=== PATIENT | female | born 1940 ===

== ENCOUNTER 2019-01-10 08:05 | Day surgery (SDC) | payer MEDICARE ==
[~2019-01-10 08:05] MED LIST: Buffered Lidocaine 1% SYRIN* 1 ML/SYRINGE INTRADERM ONE; Lactated Ringers 1000 ML Bag* 1,000 ML IV SCH
[2019-01-10] MEDS ORDERED: fentaNYL* 50 MCG/ML 2 ML VIAL (100 MCG VIAL) ONE (10:34)
[2019-01-10] MEDS ORDERED: Midazolam* 1 MG/ML 2 ML VIAL (2 MG) ONE (10:34)
[2019-01-10] MEDS ORDERED: Propofol* 10 MG/ML 20 ML BTL ONE (10:34)
[2019-01-10] MEDS ORDERED: Atropine 1MG/ML INJ* 1 ML VIAL ONE (11:14)
[2019-01-10] MEDS ORDERED: Ondansetron INJ* 2 MG/ML VIAL IV PRN (11:16)
[2019-01-10] MEDS ORDERED: DiMENhydriNATE IV* 50 MG/ML VIAL IV PUSH PRN (11:16)
[2019-01-10] MEDS ORDERED: oxyCODONE/Acetamin 5/325 MG* TAB PO PRN (11:16)
[2019-01-10] MEDS ORDERED: fentaNYL* 50 MCG/ML 2 ML VIAL (100 MCG VIAL) IV PRN (11:16)
[2019-01-10] MEDS ORDERED: Naloxone* 0.4 MG/ML 1 ML VIAL IV PRN (11:16)
[2019-01-10] MEDS ORDERED: Ondansetron INJ* 2 MG/ML VIAL ONE (11:25)
[2019-01-10 12:33] VITALS: BP 149/76
--- NOTE | 2019-01-10 13:12 | OP ---
CC: [facility] OPERATIVE REPORT: DATE OF OPERATION: 01/10/19 DATE OF : 38 SURGEON: Enrrique Sanchez MD ANESTHESIOLOGIST: Dr. Fuentes ANESTHESIA: General endotracheal anesthesia. PRE-OP DIAGNOSES: 1. Postmenopausal bleeding. 2. Thickened endometrium on ultrasound. POST-OP DIAGNOSIS: 1. Postmenopausal bleeding. 2. Thickened endometrium on ultrasound. OPERATIVE PROCEDURE: Dilation, hysteroscopy, curettage, MyoSure, and polypectomy. ESTIMATED BLOOD LOSS: Minimal. FLUID DEFICIT: Approximately 350 cc. FINDINGS: Small midline uterus, stenotic cervix. There was a thickened white area along the posterior uterine wall. This lesion was sampled with the MyoSure polypectomy. COMPLICATIONS: None. COUNTS: Sponge count correct x2. CONDITION: The patient was brought to recovery room awake and in stable condition. DESCRIPTION OF PROCEDURE: The patient was brought to the operating room and general anesthesia was found to be adequate. The patient was prepped and draped in the usual sterile fashion in the dorsal lithotomy position. The Mick stirrups were used with careful attention to the patient's knees due to a prior history of knee surgery. Time-out was performed. Exam under anesthesia was performed. The weighted speculum was placed in the vagina. The anterior lip of the cervix was grasped with a single-tooth tenaculum. The external cervical os was found to be very stenotic. The small Tavera dilators were used to slowly dilate the cervix. After using the small dilators, I was able to start using regular Tavera dilators. The MyoSure scope was then introduced with the above findings noted. The MyoSure LITE polypectomy was used to remove a thickened white area on the posterior uterine wall. Curettage was then performed. The single-tooth tenaculum was removed from the anterior lip of the cervix. Excellent hemostasis was noted. All instruments were removed from the vagina. The patient tolerated the procedure well. Sponge, lap, and needle count were correct x2 and the patient was brought to recovery room awake and in stable condition. [id number] #: [id number] [facility]
== END 2019-09-30 12:38 | disposition home or self-care (01) ==
LOC: OR 08:05
PROVIDERS: ATTEND Obstetrics & Gynecology
DX: C54.1 Malignant neoplasm of endometrium (principal); N95.0 Postmenopausal bleeding; Z87.891 Personal history of nicotine dependence; K21.9 Gastro-esophageal reflux disease without esophagitis; F32.9 Major depressive disorder, single episode, unspecified
CPT/HCPCS: 36415; 86850; 86900; 86901; 88305; 88341; 88342; J0461; J2250; J2405; J2704; J3010